=== PATIENT | male | born 1950 | race Caucasian/White ===

== ENCOUNTER → 2018-10-24 | Outpatient (CLI) | payer MEDICARE, OTHER ==
[~2018-10-24] MED LIST: CIPRO500 MG PO; CLARITIN5 MG PO; FISH OIL 1,001000 M2 PO; FLOMAX0.4 MG PO; LEVSIN0.125 MG PO; LISINOPRIL20 MG; NORCO 5-325 TA1 EACH PO; PYRIDIUM200 M2 PO; ZESTRIL5 MG PO
== END ==
LOC: M.LAB 11:51
DX: E03.9 Hypothyroidism, unspecified (principal); Z85.21 Personal history of malignant neoplasm of larynx

== ENCOUNTER → 2018-10-29 | Outpatient (CLI) | payer MEDICARE, OTHER ==
--- NOTE | ~2018-10-29 | ONC ---
[place] [address] RADIATION ONCOLOGY NOTE Name: VIDHYA TUTTLE Room: [facility]#: [id number] Admission: 10/29/18 Attend Phys: Herbert Holman MD Discharge: Date of : 52 Report #: [id number] THIS REPORT FOR: //name// CC: Herbert Rhodes DATE OF SERVICE: 10/29/2018 REFERRING PHYSICIANS: Dr. Tiffanie Rhodes, Dr. Yung Hair. [facility] phone is [phone]. 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 The radiation treatments were completed on 05/06/2010. Procedure was nasopharyngolaryngoscopy. FINDINGS: On nasopharyngolaryngoscopy via the left nostril after administration of 2% viscous lidocaine orally and 2% viscous lidocaine to left nostril, there were no visible lesions in the nasopharynx. There were no visible lesions in the posterior oropharynx. The true vocal cords were normally mobile bilaterally without any visible lesions. There was no evidence of recurrent head and neck cancer. Thank you for allowing me to participate in the care of this patient. By: 1152 [id number] Holman MD /nt
--- NOTE | ~2018-10-29 | ONC ---
[place] [address] RADIATION ONCOLOGY NOTE Name: VIDHYA TUTTLE Room: [facility]#: [id number] Admission: 10/29/18 Attend Phys: Herbert Holman MD Discharge: Date of : 52 Report #: [id number] THIS REPORT FOR: //name// CC: Herbert Rhodes DATE OF SERVICE: 10/29/2018 REFERRING PHYSICIANS: Tiffanie Rhodes MD and Dr. Yung Hair. [facility] phone is [phone]. 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 The patient's treatments were completed on 04/05/2010. INTERVAL NOTE: The patient has a very good voice quality. He denied having any odynophagia. He is swallowing well. He is eating a regular diet. MEDICATIONS: Loratadine, lisinopril, multivitamins and fish oil supplements. SOCIAL HISTORY: The patient is a retired critical care transport nurse. He is . He has 2 daughters. Cigarettes, he quit smoking sometime between 2007 and 2013. He smoked up to a pack a day for possibly around 25 years. REVIEW OF SYSTEMS: RESPIRATORY: The patient's breathing was baseline. He was not short of breath during his followup appointment. GASTROINTESTINAL: The patient has a good appetite. He is swallowing well. PHYSICAL EXAMINATION: VITAL SIGNS: The patient weighed 265.4 pounds on 10/29/2018, 261.8 pounds on 10/23/2018 and on 10/29/2018 blood pressure is 145/97, pulse 80, respirations 18, oxygen saturation is 100%. LYMPH NODES: The patient had no palpable cervical or supraclavicular lymphadenopathy. HEAD, EYES, EARS, NOSE AND THROAT: Mouth had no suspicious visible lesions or suspicious palpable lesions. On nasopharyngolaryngoscopy via the left nostril after administration of a small amount of 2% viscous lidocaine orally and 2% viscous lidocaine to the left nostril, there were no visible lesions in the nasopharynx and no visible lesions in the posterior pharynx. True vocal cords are normally mobile bilaterally without any visible lesions. HEART: Had a regular rate and rhythm without murmur. LUNGS: Clear to auscultation. LABORATORY DATA: The patient had a TSH on 10/24/2018, which was 0.734, [place] [address] RADIATION ONCOLOGY NOTE Name: VIDHYA TUTTLE Room: [facility]#: [id number] Admission: 10/29/18 Attend Phys: Herbert Holman MD Discharge: Date of : 52 Report #: [id number] within normal limits. RADIOLOGIC DATA: The patient had a chest CT on 11/21/2016, which revealed benign appearance or behavior with previous granulomatous disease with a tiny probably benign left lower lobe pulmonary nodule. ASSESSMENT AND PLAN: 1. History of true vocal cord cancer. There is no evidence of true vocal cord cancer at this time. The patient was given requisition for TSH in 10/2019. He was asked to schedule a followup appointment to see me afterwards. 2. Screening after history of cigarette smoking -- the patient was interested in resuming his screening chest CT, so requisition was written for a screening chest CT so he can resume those at this point. 3. Hypertension. The patient takes lisinopril and it is managed by his referring physicians. Thank you for allowing me to participate in the care of this patient. By: 1157 1223Djordan Holman MD /[place]
== END ==
LOC: M.RTH 02:40
DX: Z08 Encounter for follow-up examination after completed treatment for malignant neoplasm (principal); I10 Essential (primary) hypertension; Z85.21 Personal history of malignant neoplasm of larynx; Z87.891 Personal history of nicotine dependence

== ENCOUNTER → 2019-10-27 | Outpatient (CLI) | payer MEDICARE, OTHER | LOC: M.LAB 10:20 | DX: E03.9 Hypothyroidism, unspecified (principal) ==

== ENCOUNTER → 2019-11-06 | Outpatient (CLI) | payer MEDICARE, OTHER ==
--- NOTE | 2019-11-22 10:28 | ONC ---
[place] [address] RADIATION ONCOLOGY NOTE Name: LUMA TUTTLE Room: [facility]..#: [id number] Admission: 11/06/19 Attend Phys: Herbert Holman MD Discharge: Date of : 52 Report #: [id number] THIS REPORT FOR: //name// CC: Herbert Hair MD DATE OF SERVICE: 11/06/2019 REFERRING PHYSICIANS: Dr. Rhodes and Yung Hair MD. [facility] phone is [phone]. PRIMARY SITE AND HISTOPATHOLOGY: The patient received definitive radiation therapy for a stage I right true vocal cord cancer. The radiation treatments were completed on 05/06/2010. PROCEDURE: Nasopharyngolaryngoscopy. FINDINGS: On nasopharyngolaryngoscopy via the left nostril after administration of 2% viscous lidocaine orally and 2% viscous lidocaine to the left nostril, there were no visible lesions in the nasopharynx and no visible lesions in the posterior oropharynx. The true vocal cords were normally mobile bilaterally without any visible lesions. There was no evidence of recurrent head and neck cancer. Thank you for allowing me to participate in the care of this patient. <ELECTRONICALLY SIGNED> By: Herbert Holman MD 11/22/19 1028 1225 1314DMD siena Delaney
--- NOTE | 2019-11-22 10:58 | ONC ---
[address] [address] RADIATION ONCOLOGY NOTE Name: LUMA TUTTLE Room: [facility].#: [id number] Admission: 11/06/19 Attend Phys: Herbert Holman MD Discharge: Date of : 52 Report #: [id number] THIS REPORT FOR: //name// CC: Herbert Hair MD DATE OF SERVICE: 11/06/2019 REFERRING PHYSICIANS: Dr. Tiffanie Rhodes and Dr. Yung Hair. [facility] phone is [phone]. PRIMARY SITE AND HISTOPATHOLOGY: The patient received definitive radiation therapy for stage I right true vocal cord cancer. The patient's treatments were completed on 04/05/2010. INTERVAL NOTE: The patient has very good voice quality. He denied having any odynophagia. He eats a regular diet and has no issues with swallowing. MEDICATIONS: Include loratadine, lisinopril, multivitamins and fish oil supplements. SOCIAL HISTORY: The patient is a retired electrician apprentice powerhouse. He is . He has 2 daughters. Cigarettes: he quit smoking some time between 2007 through 2013, smoked up to a pack a day for about 25 years. REVIEW OF SYSTEMS: RESPIRATORY: The patient's breathing was baseline. He was not short of breath during his followup appointment. GASTROINTESTINAL: The patient has a good appetite. He is swallowing well. PHYSICAL EXAMINATION: VITAL SIGNS: On 11/06/2019, his weight was 266.6 pounds. He was 265.4 pounds on 10/29/2018. On 11/06/2019 blood pressure was 155/89, pulse 84, respirations 20, oxygen saturation 97%. LYMPH NODES: He had no palpable cervical or supraclavicular lymphadenopathy. HEART: Had a regular rate and rhythm without murmur. LUNGS: were clear to auscultation. HEAD, EYES, EARS, NOSE AND THROAT: Mouth had no suspicious visible lesions or suspicious palpable lesions. On nasopharyngolaryngoscopy via the left nostril after administration of a small amount of 2% viscous lidocaine orally and 2% viscous lidocaine to the left nostril, there were no visible lesions in the nasopharynx, no visible lesions in the posterior oropharynx and the true vocal cords were normally mobile bilaterally. LABORATORY DATA: From 10/27/2019, TSH was 0.777, [place] [address] RADIATION ONCOLOGY NOTE Name: LUMA TUTTLE Room: [facility]#: [id number] Admission: 11/06/19 Attend Phys: Herbert Holman MD Discharge: Date of : 52 Report #: [id number] ASSESSMENT AND PLAN: 1. History of true vocal cord cancer- There is no evidence of true vocal cord cancer at this time. Lab work was ordered in about a year and he was asked to schedule a followup appointment to see me afterwards. 2. Hypertension- The patient takes lisinopril and that is managed by his referring physicians. 3. Screening after history of cigarette smoking- A requisition will be written for his annual low dose chest CT without contrast in 02/2020 and he was asked to follow up with me in about a year. Thank you for allowing me to participate in the care of this patient. <ELECTRONICALLY SIGNED> By: Herbert Holman MD 11/22/19 1058 1230 1324Djordan Holman MD /nt
== END ==
LOC: M.RTH 10-28 09:30
DX: Z08 Encounter for follow-up examination after completed treatment for malignant neoplasm (principal); Z85.21 Personal history of malignant neoplasm of larynx; I10 Essential (primary) hypertension

== ENCOUNTER → 2020-11-25 | Outpatient (CLI) | payer MEDICARE, OTHER ==
--- NOTE | ~2020-11-25 | ONC ---
[address] [address] RADIATION ONCOLOGY NOTE Name: LUMA TUTTLE Room: [facility]..#: [id number] Admission: 11/25/20 Attend Phys: Herbert Holman MD Discharge: Date of : 52 Report #: [id number] THIS REPORT FOR: cc: Tiffanie Rhodes MD, Jennifer MD ~ Herbert Holman MD DATE OF SERVICE: 11/25/2020 RADIATION ONCOLOGY FOLLOWUP NOTE REFERRING PHYSICIANS: Tiffanie Rhodes MD and Yung Hair MD [facility] phone is [phone]. 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 The patient's treatments were completed on 04/05/2010. INTERVAL NOTE: The patient has good voice quality. He denied having any painful swallowing. He eats a regular diet. MEDICATIONS: Loratadine, lisinopril, fish oil and metformin. SOCIAL HISTORY: The patient is a retired journeyman apprentice electricians. He is . He has 2 daughters. Cigarettes, he quit smoking somewhere between 2007 through 2013. He smoked up to a pack a day for about 25 years. REVIEW OF SYSTEMS: RESPIRATORY: The patient's breathing was baseline. He was not short of breath. GASTROINTESTINAL: The patient has a good appetite. He is swallowing well. PHYSICAL EXAMINATION: VITAL SIGNS: On 11/25/2020; the patient's weight was 257.6 pounds. He was 266.6 pounds on 11/06/2020 and then on 11/25/2020, blood pressure 156/92, pulse 98, temperature 98.9 degrees Fahrenheit, respirations 18, oxygen saturation 97%. LYMPH NODES: He had no palpable cervical or supraclavicular lymphadenopathy. HEART: Had a regular rate and rhythm without murmur. LUNGS: Clear to auscultation. HEAD, EYES, EARS, NOSE AND THROAT EXAMINATION: Mouth had no suspicious visible lesions or suspicious palpable lesions. On nasopharyngolaryngoscopy via the left nostril after administration of a small amount of 2% viscous lidocaine orally and 2% viscous lidocaine to left nostril, no visible lesions in the nasopharynx, no visible lesions in the posterior oropharynx. The true vocal cords are normally mobile bilaterally. LABORATORY DATA: The patient's TSH was 0.639 on 11/08/2020, [place] [address] RADIATION ONCOLOGY NOTE Name: LUMA TUTTLE Room: [facility]#: [id number] Admission: 11/25/20 Attend Phys: Herbert Holman MD Discharge: Date of : 52 Report #: [id number] normal limits. Free T4 was 1.21, which was also within normal limits. ASSESSMENT AND PLAN: 1. History of true vocal cord cancer. There is still evidence of true vocal cord cancer at this time. Lab work was ordered in about 1 year, which was a TSH and he was asked to follow up with me afterwards. 2. History of cigarette smoking. Requisition was written for screening low-dose chest CT without contrast on 02/2020 and follow up with me afterwards. 3. Hypertension. The patient takes lisinopril that is managed by his referring physicians. Thank you for allowing me to participate in the care of this patient. By: 1622 1915Herbert Holman MD /nt
--- NOTE | ~2020-11-25 | ONC ---
[place] [address] RADIATION ONCOLOGY NOTE Name: LUMA TUTTLE Room: [facility]..#: [id number] Admission: 11/25/20 Attend Phys: Herbert Holman MD Discharge: Date of : 52 Report #: [id number] THIS REPORT FOR: cc: Tiffanie Rhodes MD, Jennifer MD ~ Herbert Holman MD DATE OF SERVICE: 11/25/2020 REFERRING PHYSICIANS: Tiffanie Rhodes MD and Yung Hair MD. [facility] phone is [phone]. 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 The radiation treatments were completed on 05/06/2010. PROCEDURE: Nasopharyngolaryngoscopy. FINDINGS: On nasopharyngolaryngoscopy via the left nostril after administration of 2% viscous lidocaine orally and 2% viscous lidocaine to left nostril, there were no visible lesions in the nasopharynx, no visible lesions in the posterior oropharynx. The true vocal cords are normally mobile bilaterally without any visible lesions. There is no evidence of any recurrent head or neck cancer. Thank you for allowing me to participate in the care of this patient. By: 1619 1904Djordan Holman MD /nt
== END | disposition home or self-care (01) ==
LOC: M.RTH 11-04 09:00
PROVIDERS: ATTEND Radiology Radiation Oncology
DX: Z08 Encounter for follow-up examination after completed treatment for malignant neoplasm (principal); Z85.21 Personal history of malignant neoplasm of larynx; I10 Essential (primary) hypertension; Z98.890 Other specified postprocedural states; Z79.899 Other long term (current) drug therapy; Z87.891 Personal history of nicotine dependence